=== PATIENT | female | born 1940 | race Caucasian/White ===

== ENCOUNTER → 2019-10-05 | Outpatient (CLI) | payer OTHER, MEDICARE ==
[~2019-10-05] MED LIST: ADULT LOW DOSE81 MG PO; BENAZEPRIL HCL20 MG PO; BENAZEPRIL-HCT1 EA11 PO; CEFTIN500 MG PO; CIPRO500 MG PO; CLARITIN10 MG PO; DUONEB 2.5-0.5 M3 ML INH; ENDOCET 7.5-321 EACH PO; FISHOIL OR; FLORANEX PACKET1 GM PO; HYDROCHLOROTH12.5 M1 PO; KLOR-CON 1010 MEQ PO; LEVAQUIN 500 M500 MG PO; LORTAB 5 MG/5001 TA1 PO; LOTENSIN OR; LOVASTAT40 PO; MEVACOR40 MG PO; MUCINEX TA600 MG/TA2 PO; MULTI-BETIC TA1 EACH PO; MULTIVITAMINS PO; NORCO 5-325 TA1 EACH PO; PAXIL10 MG; PREDNISONE 10 M10 MG PO; PREDNISONE50 MG PO; PRILOSEC 20 MG20 MG PO; SENOKOT-S1 TA1 PO; SYMBICORT160 MCG/4. INH; TAMIFLU75 MG PO; UNICOMPLEX M TA1 TA1 PO; VENTOLIN HFA 1818 GM INH; VENTOLIN17 GM INH; VITAMIN D 5050000 I1 PO; VITAMIN D1000 UNI1; ZOFRAN ODT4 MG PO
== END ==
LOC: RAD 08:25
PROVIDERS: ATTEND Internal Medicine
DX: J44.9 Chronic obstructive pulmonary disease, unspecified (principal)

== ENCOUNTER 2020-03-01 14:23 | Inpatient (IN) | payer OTHER, MEDICARE ==
[~2020-03-01] VITALS: Ht 170.2 cm; Wt 62.5 kg
[2020-03-01 14:24] VITALS: BP 191/87
[2020-03-01 15:11] LABS: BASOPHILS 0.4 % (0.0-2.0); EOSINOPHILS 0.5 % (0.0-3.0); HEMATOCRIT 38.4 % (37.0-47.0); HEMOGLOBIN 12.8 gm/dL (12.0-15.0); LYMPHOCYTES 3.8 % (24.0-44.0); MCH 28.9 pg (26.0-34.0); MCHC 33.3 g/dL (28.0-37.0); MCV 86.7 fL (80.0-100.0); MONOCYTES 3.7 % (1.0-8.0); PLATELET COUNT 150 thou/uL (150-400); POLYS 91.6 % (36.0-66.0); RBC 4.44 mil/uL (4.20-5.00); RDW 14.8 % (10.5-14.5); WBC 10.9 thou/uL (4.0-11.0)
[2020-03-01 15:17] LABS: CALCIUM 9.5 mg/dL (8.5-10.1); CREATININE 0.9 mg/dL (0.6-1.0); POTASSIUM 3.6 mmol/L (3.5-5.1)
[2020-03-01 15:24] LABS: ALBUMIN 3.3 g/dL (3.4-5.0); TOTAL BILIRUBIN 0.8 mg/dL (0.2-1.0)
[2020-03-01 20:25] VITALS: BP 181/95
--- NOTE | 2020-03-01 20:26 | NUR ---
HAND OFF TOOL SENT TO [facility]
--- NOTE | 2020-03-01 20:30 | NUR ---
FIRST ATTEMPT TO CALL REPORT
[2020-03-01 21:03] VITALS: BP 181/95
[2020-03-01 21:04] VITALS: BP 181/95
[2020-03-01 23:56] LABS: CHOLESTEROL 155 mg/dL (<200); HDL CHOLESTEROL 58 mg/dL (>40); LDL CHOLESTEROL 86 mg/dL (<100); TC:HDL 2.7 Ratio (Not establshd); TRIGLYCERIDE 59 mg/dL (<150); VLDL 12 mg/dL (<40)
[2020-03-01 23:57] LABS: SERUM ASSESSMENT Clear
[2020-03-02 03:42] LABS: URINE BILIRUBIN NEGATIVE (Negative); URINE BLOOD NEGATIVE (Negative); URINE CLARITY CLEAR; URINE COLOR YELLOW; URINE GLUCOSE-RANDOM* NEGATIVE (Negative); URINE KETONES NEGATIVE (Negative); URINE LEUKOCYTES-REFLEX NEGATIVE (Negative); URINE NITRITE-REFLEX NEGATIVE (Negative); URINE PROTEIN (DIPSTICK) TRACE (Negative)
[2020-03-02 04:07] LABS: CALCIUM 9.7 mg/dL (8.5-10.1); CREATININE 1.1 mg/dL (0.6-1.0); POTASSIUM 3.4 mmol/L (3.5-5.1)
[2020-03-02 04:25] VITALS: BP 121/83
[2020-03-02 07:10] VITALS: BP 130/67
--- NOTE | 2020-03-02 09:28 | NUR ---
ASSESSMENT: CM REVIEWED CHART AND MET WITH PATIENT. PT HAS NON-DISPLACED FX 3RD METATARSAL AND DISTAL DORSOLATERAL LATERAL CUNEIFORM. ORTHO HAS BEEN CONSULTED AND PT IS TO WEAR CAM BOOT. PT REPORTS LIVING ALONE IN A HOME. PT REPORTS THREE STEPS TO ENTER THE HOUSE THROUGH THE FRONT DOOR OR 12 STEPS WITH HANDRAILS IF ENTERING THROUGH THE GARAGE. PT REPORTS ONCE INSIDE ON THE MAIN LEVEL SHE HAS NO MORE STEPS. PT REPORTS NORMALLY AMBULATING INDEPENDENTLY AND HAS NO DME TO ASSIST HER. PT REPORTS NO HX OF HH OR SNF. PT REPORTS USING 2L OXYGEN AT BEDTIME BUT UNSURE THE PROVIDER. CM DISCUSSED ROLE. ORTHO IS CONSULTED WELL PT/OT. CM NOTIFIED LIASON ON 5N PT MAY BE A CANIDATE PENDING PLANS/PROGRESSION. CM WILL CONTINUE TO FOLLOW TO ASSIST NEEDED.
--- NOTE | 2020-03-02 14:01 | NUR ---
ON-GOING ASSESSMENT: CM REVIEWED CHART. 5N REVIEWED PATIENT AND SHE DOES NOT QUALIFY. CM MET WITH PATIENT AND DISCUSSED SNF OPTIONS AND PROVIDED HER WITH A SNF LIST. PT REPORTS BEING TO [facility] IN THE PAST AND DID NOT LIKE IT. PT IS REQUESTING A REFERRAL BE SENT TO [facility]. CM SPOKE WITH RED FROM ON LICENSE OF [facility] WHO REPORTS THEY WILL HAVE A BED OPEN ON THURSDAY BUT BEDSIDE RN CAN CALL HER ON THURSDAY IF PT IS READY BEFORE THEN TO SEE IF SHE HAS ANY OPENINGS THURSDAY (MYKEL MOON CELL:[phone]). CM REQUESTED ATTENDING TO ORDER A COVID TEST ON PATIENT SNF WILL NEED RESULTS. PLANS ARE TO DISCHARGE TO ON LICENSE OF [facility] ONCE MEDICALLY STABLE AND BED AVAILABLE, LIKELY THURSDAY. [facility] OVP:[phone] FAX:[phone] RED MYKEL:[phone].
[2020-03-02 15:35] VITALS: BP 123/71
--- NOTE | 2020-03-02 18:24 | NUR ---
PT IS AOX4, VSS, PAIN CONTROLLED WITH ORAL PAIN ANALGESIC. PT HAS BOOT ON LEFT FOOT. ACTIVELY WORKING WITH PT/OT. IV PATENT IN L AC/SL, CURRENTLY ON 2L 02. PT PLACED ON 2L O2 DURING THE DAY BECAUSE HER O2 SAT WAS 87% ON RA. PT REPORTS AT HOME SHE ONLY USES 2L O2 AT NIGHT. RT GIVES BREATHING TX SCHEDULED. PT CALLS APPROPRIATELY, WILL CONTINUE TO MONITOR.
[2020-03-02 19:10] VITALS: BP 143/74
[2020-03-03 00:06] LABS: GLYCOHEMOGLOBIN (HGB A1C) 5.5 % (4.8-5.6)
--- NOTE | 2020-03-03 02:42 | NUR ---
ASSUMED PT CARE AT SHIFT CHANGE. PT IS A&O X4. VSS. PT CAN COMMUNICATE HER NEEDS. IV IS IN LEFT AC AND IS PATENT. PT TAKES MEDS WHOLE. PT DOES NOT LIKE THE WEIGHT OF THE BOOT. PT WAS RE EDUCATED ABOUT THE NEED FOR THE BOOT. PT USES BEDPAN BY HERSELF AND WILL CALL OUT WHEN IT NEEDS TO BE EMPTIED. PT STATED THAT SHE DOES NOT WANT FENTANYL ANY MORE BECAUSE SHE FEELS LIKE IT CAUSED HER HEADACHE. PT REQUESTED TYLENOL FOR PAIN. PT STATES THAT HER HEADACHE HAS RESOLVED ITSELF. WILL CONTINUE TO MONITOR.
[2020-03-03 04:30] VITALS: BP 134/77
[2020-03-03 08:15] VITALS: BP 130/61
--- NOTE | 2020-03-03 09:31 | NUR ---
ASSUMED CARE AT 0700. PT IS A&O X4. PT HAS 2.0 L OF O2 AND IS TOLERATING AT 94%. WHEN I CAME IN, PT HAS TAKEN OFF NC AND WAS 87% ON RA. I EDUCATED PT ON THE IMPORTANCE OF HAVING NC. PT HAS DIMINISHED LUNG SOUNDS AND DENIES SOA OR DIZZY OR NAUSEA. PT COMPLAINS OF HEADACHE AND BEING CONSTIPATED. PT WAS GIVEN PAIN MEDICATION FOR GREER AND I WILL CALL DOCTOR FOR STOOL SOFTNER. VSS. IV ON L. AC SHOWS NO SIGNS OF REDNESS OR SWELLING. FALL PRECAUTION. CALL LIGHT WITHIN REACH. DIET IS HEARRT HEALTHY. PT DENIES PAIN ON L. FOOT.
[2020-03-03 15:32] VITALS: BP 144/69
[2020-03-03 19:03] VITALS: BP 128/65
--- NOTE | 2020-03-03 23:56 | NUR ---
ASSUMED PT CARE AT 1900. PT IS A&OX4. IV WAS BAD AT THE BEGINING OF THE SHIFT. PT TOLERATES MEDICATION. DENIES NAUSEA AND PAIN. PT IS ON 2 L ON THE NASAL CANULA. PT EXPRESSES THAT SHE WANTS TO HAVE A BM. PT USES THE BSC. PT STATES THAT SHE HAS A WEIRD FEELING IN HER FOOT. PT ALSO HAS A LOW GRADE TEMPERATURE - 99.2 I ADMINISTERED TYLENOL. WILL CONTINUE TO MONITOR. PT IS SLEEPING IN HER ROOM, PERFORMING HOURLY ROUNDS.
--- NOTE | 2020-03-04 03:53 | NUR ---
RN OVERSEEING PATIENT CARE, I AGREE WITH THE ASSESSMENT AND NOTES BY HATCHERY LABORER ON THIS PATIENT.
[2020-03-04 06:58] VITALS: BP 157/72
--- NOTE | 2020-03-04 07:53 | NUR ---
ASSUMED CARE AT 0700. PT IS
[2020-03-04 08:47] VITALS: BP 157/72
[2020-03-04] MEDS ORDERED: ENOXAPARIN40 MG/0.1 SUBQ (13:15)
[2020-03-04] MEDS ORDERED: ACETAMINOPHEN325 M1 PO (13:15)
[2020-03-04] MEDS ORDERED: HYDROCODON-ACE1 EAC7 PO (13:15)
== END 2020-03-04 14:00 | DRG 563 ==
LOC: ER 14:23 → 4S 19:51 → EROBS 19:51 → 4S 20:54
PROVIDERS: Nurse Practitioner Family; Physician Assistant; ADMIT Hospitalist; ATTEND Hospitalist
PROC: 2W3TX1Z Immobilization of Left Foot using Splint (ICD-10-PCS; principal; 2020-03-01)
DX: S92.335A Nondisplaced fracture of third metatarsal bone, left foot, initial encounter for closed fracture (principal); J96.11 Chronic respiratory failure with hypoxia; S92.225A Nondisplaced fracture of lateral cuneiform of left foot, initial encounter for closed fracture; R53.81 Other malaise; E03.9 Hypothyroidism, unspecified; E78.5 Hyperlipidemia, unspecified; I25.10 Atherosclerotic heart disease of native coronary artery without angina pectoris; I10 Essential (primary) hypertension; J44.9 Chronic obstructive pulmonary disease, unspecified; K21.9 Gastro-esophageal reflux disease without esophagitis; F32.9 Major depressive disorder, single episode, unspecified; W19.XXXA Unspecified fall, initial encounter; M17.12 Unilateral primary osteoarthritis, left knee; Z60.2 Problems related to living alone; Z20.828 Contact with and (suspected) exposure to other viral communicable diseases; Z79.82 Long term (current) use of aspirin; Z88.5 Allergy status to narcotic agent; Z88.7 Allergy status to serum and vaccine; Z88.8 Allergy status to other drugs, medicaments and biological substances; Z87.891 Personal history of nicotine dependence; Y93.89 Activity, other specified; Y92.89 Other specified places as the place of occurrence of the external cause; Y99.8 Other external cause status; Z85.038 Personal history of other malignant neoplasm of large intestine
CPT/HCPCS: 10195